=== PATIENT | male | born 1960 | race Caucasian/White ===

== ENCOUNTER 2018-03-29 09:17 | Emergency (ER) | payer BC ==
[2018-03-29 09:32] VITALS: BP 165/90
--- NOTE | 2018-03-29 09:52 | UC ---
Dental HPI - HPI Summary HPI Summary: Pt presents with c/o gradual onset of right upper and lower jaw pain. Pt states that he had a tooth filled on both right upper and right lower jaw in january 2018 and they "have not been right since'. Pt thought he was developing a dental abscess and called dental provider and was prescribed amox 875 mg PO Q12h. pt reports that his pain has not improved, no swelling no fever. pt describes pain as throbbing and radiating from right ear across right upper and right lower jaw. No injury - History of Current Complaint Chief Complaint: UCDentalProblem Stated Complaint: DENTAL COMPLAINT Time Seen by Provider: 03/29/18 09:31 Hx Obtained From: Patient Onset/Duration: Gradual Onset, Lasting Days, Still Present Severity: Severe Pain Intensity: 9 Aggravating Factor(s): Heat, Cold Alleviating Factor(s): Nothing Related History: Previous Dental Care on Same Tooth - Allergies/Home Medications Allergies/Adverse Reactions: Allergies Allergy/AdvReac Type Severity Reaction Status Date / Time No Known Allergies Allergy Verified 03/29/18 09:28 Home Medications: Home Medications Acetaminophen [Acetaminophen Extra Strength] 1,000 mg PO Q6H PRN 03/29/18 [ History Confirmed 03/29/18] Amoxicillin PO (*) [Amoxicillin 875 MG (*)] 875 mg PO BID 03/29/18 [History Confirmed 03/29/18] PMH/Surg Hx/FS Hx/Imm Hx Previously Healthy: Yes Cardiovascular History: Cardiac Disease, Deep Vein Thrombosis - Surgical History Surgical History: Yes Surgery Procedure, Year, and Place: IVC filter - Family History Known Family History: Positive: Cardiac Disease - Social History Occupation: Employed Full-time Lives: With Family Alcohol Use: Daily Alcohol Amount: beer Substance Use Type: None Smoking Status (MU): Light Every Day Tobacco Smoker Type: Smokeless Tobacco Amount Used/How Often: 1 can every 3 days Have You Smoked in the Last Year: Yes - smokeless Review of Systems All Other Systems Reviewed And Are Negative: Yes Constitutional: Positive: Negative Skin: Positive: Negative Eyes: Positive: Negative ENT: Positive: Dental Pain Respiratory: Positive: Negative Cardiovascular: Positive: Negative Gastrointestinal: Positive: Negative Genitourinary: Positive: Negative Motor: Positive: Negative Musculoskeletal: Positive: Myalgia Neurological: Positive: Negative Psychological: Positive: Negative Is Patient Immunocompromised?: No Physical Exam Triage Information Reviewed: Yes Appearance: Pain Distress Vital Signs: Initial Vital Signs Temp 97.1 F 03/29/18 09:26 Pulse 64 03/29/18 09:26 Resp 16 03/29/18 09:26 BP 165/90 03/29/18 09:26 Pulse Ox 100 03/29/18 09:26 Vital Signs Reviewed: Yes Eye Exam: Normal ENT: Positive: Other - facial pain extending from rigth ear to right upper jaw and rigth lower jaw Dental Exam: Normal Neck exam: Normal Respiratory Exam: Normal Cardiovascular Exam: Normal Musculoskeletal Exam: Normal Neurological Exam: Normal Neurological: Positive: Alert, Muscle Tone Normal Psychological Exam: Normal Skin Exam: Normal Dental Complaint Course/Dx - Differential Dx/Diagnosis Differential Diagnosis/Dx: Dental Abscess, Dental Caries, Fractured Tooth, TMJ Syndrome Provider Diagnosis: Facial pain, atypical, Trigeminal neuralgia of right side of face Discharge - Sign-Out/Discharge Documenting (check all that apply): Patient Departure All imaging exams completed and their final reports reviewed: No Studies - Discharge Plan Condition: Stable Disposition: HOME Prescriptions: predniSONE TAB* [Deltasone 10 MG TAB*] 30 mg PO DAILY #12 tab traMADol TAB* [Ultram*] 25 mg PO Q8H PRN #15 tab MDD 75 mg PRN Reason: Pain Patient Education Materials: Atypical Facial Pain (ED) Referrals: Fede Núñez MD [Primary Care Provider] - As Soon As Possible Additional Instructions: Please follow up with your PCP and dental care provider as soon as possible. - Billing Disposition and Condition Condition: STABLE Disposition: Home
== END 2018-03-29 10:15 | disposition home or self-care (01) ==
LOC: UCCORT 09:17
DX: G50.0 Trigeminal neuralgia (principal); F17.210 Nicotine dependence, cigarettes, uncomplicated
CPT/HCPCS: 99212; G0463